=== PATIENT | female | born 1950 | race Caucasian/White ===

== ENCOUNTER → 2017-02-07 | Outpatient (CLI) | payer MEDICARE, BC ==
--- NOTE | 2017-02-07 17:42 | RADIOLOGY REPORT (SQ) ---
EXAM DESCRIPTION: U/S RETROPERITON (RENAL/AORTA) COMPLETED DATE/TIME: 02/07/2017 5:22 pm REASON FOR STUDY: CYST OF KIDNEY, ACQUIRED N28.1 CYST OF KIDNEY, ACQUIRED COMPARISON: None. TECHNIQUE: Dynamic and static grayscale images acquired of the kidneys and bladder and recorded on P ACS. Additional selected color Doppler and spectral images recorded. LIMITATIONS: None. 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 No solid or suspicious masses. No hydronephrosis. No calcifications. LEFT KIDNEY: 14.7 cm. Normal echogenicity. No solid masses. No hydronephrosis. No calcifications . Apparent 87 x 82 x 68 mm cyst arising from the lower pole. . BLADDER: No masses. OTHER FINDINGS: No other significant finding. IMPRESSION: Left renal cyst. No acute abnormality is seen. TECHNICAL DOCUMENTATION: JOB ID: [id number] [employer]- All Rights Reserved
== END ==
LOC: RAD 16:43
PROVIDERS: ATTEND Urology
DX: N28.1 Cyst of kidney, acquired (principal)
CPT/HCPCS: 76770

== ENCOUNTER 2017-06-20 07:36 | Day surgery (SDC) | payer MEDICARE, BC, OTHER ==
--- NOTE | 2017-06-15 11:20 | HISTORY AND PHYSICAL E ---
History and Physical NAME: SAADIA OLVERA : 1950 AGE: 66Y ADMITTED: 06/20/2017 ROOM: CHIEF COMPLAINT: Patient presented at this time for colon exam. She does have history of diverticulosis and rectal bleeding. Plan, colonoscopy. PAST MEDICAL HISTORY: GI bleed, irregular heartbeat, high cholesterol. PAST SURGICAL HISTORY: Knee replacement, ectopic . SOCIAL HISTORY: Does not smoke. Does not drink. MEDICATIONS: 1. Effexor. 2. Metoprolol. ALLERGIES: No known allergies. PHYSICAL EXAMINATION: GENERAL: Pleasant, alert, oriented. In no acute distress. VITAL SIGNS: Blood pressure is 140/60, pulse 60, respirations 18, temp is 98. HEAD, EYES, EARS, NOSE, THROAT: Normal. NECK: Supple. LUNGS: Clear. ABDOMEN: Soft. NEUROLOGIC: Negative. DIAGNOSTICS: Ultrasound shows a 9 cm cyst of the left kidney causing distortion of the left kidney, otherwise, normal. Patient did have colonoscopy in 2003. It shows sigmoid diverticulosis and redundant colon. Another colonoscopy in 2011 shows tiny polyp in the rectosigmoid, severe diverticulosis, no bleeding, mild external hemorrhoids. She did have sigmoid diverticulosis, descending colon diverticulosis, transverse colon normal, ascending colon occasional diverticulosis. CONCLUSION: 1. Diverticulosis. 2. Rectal bleeding. PLAN: Colonoscopy regarding diverticulosis and rectal bleeding. DICTATING PHYSICIAN: AMANDA PALMA M.D. [id number] [id number] PHY#: [id number] ID: [id number] JOB#: [id number] ACCT: [id number] cc:AMANDA PALMA M.D. >
[2017-06-20] MEDS ORDERED: LIDOCAINE 2% JELLY 30 ML TUBE ONE (07:44)
[2017-06-20] MEDS ORDERED: ONDANSETRON HCL INJ/PF 4 MG/2 ML SDV ONE (07:45)
[2017-06-20] MEDS ORDERED: NALOXONE HCL INJ/PF 0.4 MG/1 ML SDV ONE (07:45)
[2017-06-20] MEDS ORDERED: GLYCOPYRROLATE INJ 0.4 MG/2 ML VIAL ONE (07:45)
[2017-06-20] MEDS ORDERED: EPINEPHRINE INJ 1 MG/10 ML DISP.SYRIN ONE (07:46)
[2017-06-20] MEDS ORDERED: FLUMAZENIL INJ 0.5 MG/5 ML VIAL ONE (07:46)
[2017-06-20] MEDS ORDERED: GLUCAGON,HUMAN RECOMB 1 MG INJ ONE (07:46)
[2017-06-20] MEDS: MIDAZOLAM 2 MG/2 ML INJ ONE ×3 (08:23→08:40)
[2017-06-20] MEDS: FENTANYL CITRATE INJ/PF 100 MCG/2 ML AMPUL ONE ×3 (08:25→08:35)
[2017-06-20 09:46] VITALS: BP 128/71
[2017-06-20 09:57] LABS: ABSOLUTE EOSINOPHILS # (AUTO) 0.1 10^3/uL (0.0-0.6); ABSOLUTE MONOCYTES (AUTO) 0.4 10^3/uL (0.1-1.4); BASOPHILS % (AUTO) 0.5 % (0-2); HEMATOCRIT 36.6 % (36.0-47.0); HEMOGLOBIN 12.2 g/dL (12.0-15.5); LYMPHOCYTES % (AUTO) 22.1 % (13-45); MEAN CORPUSCULAR HEMOGLOBIN 28.4 pg (27.0-33.4); MEAN CORPUSCULAR HGB CONC 33.3 g/dL (32.0-36.0); MEAN CORPUSCULAR VOLUME 85 fl (80-97); MONOCYTES % (AUTO) 8.7 % (3-13); RED BLOOD COUNT 4.29 10^6/uL (3.72-5.28); RED CELL DISTRIBUTION WIDTH 13.1 % (11.5-14.0); SEGMENTED NEUTROPHILS % (AUTO) 65.7 % (42-78); WHITE BLOOD COUNT 4.6 10^3/uL (4.0-10.5)
[2017-06-20 10:11] LABS: IRON 74.2 ug/dL (37-170)
[2017-06-20 10:46] LABS: FERRITIN 85.3 ng/mL (11.1-264.0)
--- NOTE | 2017-06-20 13:48 | DISCHARGE SUMMARY E ---
Discharge Summary NAME: SAADIA OLVERA : 1950 AGE: 66Y ADMITTED: 06/20/2017 DISCHARGED: 06/20/2017 HOSPITAL COURSE: The patient is a 66-year-old female presented with blood in the stool. Underwent colonoscopy today showing external hemorrhoids and proctitis and sigmoid descending colon diverticulosis and small 2 mm transverse colon polyp removed by biopsy. A 1 mm and pinpoint tiny polyps small to biopsy. Cecum normal. DISCHARGE PLAN: Soft low residue diet 3 days. Baseline CBC. Consideration followup colonoscopy 3 years. Patient to start on high fiber diet after a few days. Awaiting biopsy results and lab studies, CBC. DICTATING PHYSICIAN: AMANDA PALMA M.D. 1211M [id number] PHY#: [id number] ID: [id number] JOB#: [id number] ACCT: [id number] cc:AMANDA PALMA M.D. >
--- NOTE | 2017-06-20 14:11 | OPERATIVE REPORT E ---
Operative Report NAME: SAADIA OLVERA : 1950 AGE: 66Y DATE OF SURGERY: 06/20/2017 ROOM: PREOPERATIVE DIAGNOSIS: Colon screening. POSTOPERATIVE DIAGNOSIS: Small 2 mm polyp mid transverse colon removed by biopsy, 1 mm mid ascending colon too small to biopsy. Sigmoid descending colon diverticulosis, moderate to severe, external hemorrhoids and mild proctitis. The bleeding most likely is coming from external hemorrhoids and mild proctitis. No evidence of malignancy with diverticulosis or not bleeding. SURGEON: AMANDA PALMA M.D. ANESTHESIA: Versed 2, fentanyl 100. TISSUE REMOVED OR ALTERED: Biopsy polyp mid transverse colon. DESCRIPTION: Rectal exam: Mild external hemorrhoids. Mild proctitis at the anal verge. There is some erythema in the anal area consistent with mild proctitis, mild external hemorrhoids. No active bleeding. No malignancy. Sigmoid diverticulosis. Moderate descending colon diverticulosis. Transverse colon 2 mm sessile polyp on a fold removed by biopsy. Ascending colon 1 mm polyp small to biopsy. Cecum normal. Scope withdrawn from cecum, ascending, transverse, descending, sigmoid all the way to the rectum. CONCLUSION: Sigmoid descending colon diverticulosis, external hemorrhoids. PLAN: Awaiting biopsy results. Consideration followup colonoscopy after 3 years. Awaiting biopsy results. Soft, low-residue diet. Hold aspirin, nonsteroidal 5 days. DICTATING PHYSICIAN: AMANDA PALMA M.D. [id number] PHY#: [id number] ID: [id number] JOB#: [id number] ACCT: [id number] cc:AMANDA PALMA M.D. >
== END 2017-06-20 10:00 | disposition home or self-care (01) ==
LOC: END 07:36
PROVIDERS: ATTEND Specialist
PROC: 0DBL8ZX Excision of Transverse Colon, Via Natural or Artificial Opening Endoscopic, Diagnostic (ICD-10-PCS; principal; 2017-06-20 08:00)
DX: D12.2 Benign neoplasm of ascending colon (principal); K62.5 Hemorrhage of anus and rectum; K64.4 Residual hemorrhoidal skin tags; K62.89 Other specified diseases of anus and rectum; K57.30 Diverticulosis of large intestine without perforation or abscess without bleeding; N28.1 Cyst of kidney, acquired; E78.00 Pure hypercholesterolemia, unspecified; Z96.659 Presence of unspecified artificial knee joint; I49.9 Cardiac arrhythmia, unspecified; Z79.899 Other long term (current) drug therapy
CPT/HCPCS: 45380; 36415; 82728; 83540; 85025; 88305 ×2; J2250; J3010; J1610; J2405; J0171; J2310; J3490

== ENCOUNTER → 2019-10-01 | Day surgery (SDC) | payer MEDICARE, BC, OTHER ==
[~2019-10-01] MED LIST: METHYLPREDNISOLONE ACETATE INJ 40 MG/1 ML ML ONE
--- NOTE | 2019-10-01 15:02 | RADIOLOGY REPORT (SQ) ---
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 FLUOROSCOPY TIME: 1.8 minutes 2 images saved to PACS. LIMITATIONS: None. PROCEDURE: SITE OF INJECTION: Bilateral subtalar joints LOCALIZING CONTRAST TYPE AND DOSE: 1 mL Omnipaque each MEDICATION TYPE AND DOSE: 40 mg Depo-Medrol/ 1 mL bupivacaine for each side. Using local anesthesia and sterile technique with fluoroscopic guidance, the needle was advanced into the joint. Iodinated contrast was injected to verify intraarticular placement. This was followed by therapeutic injection of the indicated medications. The needle was removed. There were no immediat e complications. Preprocedure pain level: 5/5 for left and right foot Postprocedure pain level: 0/5 for left and right foot IMPRESSION: THERAPEUTIC INJECTION OF THE BILATERAL SUBTALAR JOINTS ABOVE. COMMENT: Patient medication list reviewed: Yes- Quality ID# [id number]:Eligible professional attests to doc umenting in the medical record they obtained, updated, or reviewed the patient's current medications. . Quality ID 145: Final reports for procedures using fluoroscopy that document radiation exposure [place], or exposure time and number of fluorographic images (if radiation exposure indices are not avail able) TECHNICAL DOCUMENTATION: JOB ID: [id number] [employer]- All Rights Reserved Reading location - IP/workstation name: [email or web address] [id number]
--- NOTE | 2019-10-01 15:02 | RADIOLOGY REPORT (SQ) ---
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 FLUOROSCOPY TIME: 1.8 minutes 2 images saved to PACS. LIMITATIONS: None. PROCEDURE: SITE OF INJECTION: Bilateral subtalar joints LOCALIZING CONTRAST TYPE AND DOSE: 1 mL Omnipaque each MEDICATION TYPE AND DOSE: 40 mg Depo-Medrol/ 1 mL bupivacaine for each side. Using local anesthesia and sterile technique with fluoroscopic guidance, the needle was advanced into the joint. Iodinated contrast was injected to verify intraarticular placement. This was followed by therapeutic injection of the indicated medications. The needle was removed. There were no immediat e complications. Preprocedure pain level: 5/5 for left and right foot Postprocedure pain level: 0/5 for left and right foot IMPRESSION: THERAPEUTIC INJECTION OF THE BILATERAL SUBTALAR JOINTS ABOVE. COMMENT: Patient medication list reviewed: Yes- Quality ID# [id number]:Eligible professional attests to doc umenting in the medical record they obtained, updated, or reviewed the patient's current medications. . Quality ID 145: Final reports for procedures using fluoroscopy that document radiation exposure [place], or exposure time and number of fluorographic images (if radiation exposure indices are not avail able) TECHNICAL DOCUMENTATION: JOB ID: [id number] [employer]- All Rights Reserved Reading location - IP/workstation name: [email or web address] [id number]
--- NOTE | 2019-10-01 15:02 | RADIOLOGY REPORT (SQ) ---
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 FLUOROSCOPY TIME: 1.8 minutes 2 images saved to PACS. LIMITATIONS: None. PROCEDURE: SITE OF INJECTION: Bilateral subtalar joints LOCALIZING CONTRAST TYPE AND DOSE: 1 mL Omnipaque each MEDICATION TYPE AND DOSE: 40 mg Depo-Medrol/ 1 mL bupivacaine for each side. Using local anesthesia and sterile technique with fluoroscopic guidance, the needle was advanced into the joint. Iodinated contrast was injected to verify intraarticular placement. This was followed by therapeutic injection of the indicated medications. The needle was removed. There were no immediat e complications. Preprocedure pain level: 5/5 for left and right foot Postprocedure pain level: 0/5 for left and right foot IMPRESSION: THERAPEUTIC INJECTION OF THE BILATERAL SUBTALAR JOINTS ABOVE. COMMENT: Patient medication list reviewed: Yes- Quality ID# [id number]:Eligible professional attests to doc umenting in the medical record they obtained, updated, or reviewed the patient's current medications. . Quality ID 145: Final reports for procedures using fluoroscopy that document radiation exposure [place], or exposure time and number of fluorographic images (if radiation exposure indices are not avail able) TECHNICAL DOCUMENTATION: JOB ID: [id number] [employer]- All Rights Reserved Reading location - IP/workstation name: [email or web address] [id number]
--- NOTE | 2019-10-01 15:02 | RADIOLOGY REPORT (SQ) ---
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 FLUOROSCOPY TIME: 1.8 minutes 2 images saved to PACS. LIMITATIONS: None. PROCEDURE: SITE OF INJECTION: Bilateral subtalar joints LOCALIZING CONTRAST TYPE AND DOSE: 1 mL Omnipaque each MEDICATION TYPE AND DOSE: 40 mg Depo-Medrol/ 1 mL bupivacaine for each side. Using local anesthesia and sterile technique with fluoroscopic guidance, the needle was advanced into the joint. Iodinated contrast was injected to verify intraarticular placement. This was followed by therapeutic injection of the indicated medications. The needle was removed. There were no immediat e complications. Preprocedure pain level: 5/5 for left and right foot Postprocedure pain level: 0/5 for left and right foot IMPRESSION: THERAPEUTIC INJECTION OF THE BILATERAL SUBTALAR JOINTS ABOVE. COMMENT: Patient medication list reviewed: Yes- Quality ID# [id number]:Eligible professional attests to doc umenting in the medical record they obtained, updated, or reviewed the patient's current medications. . Quality ID 145: Final reports for procedures using fluoroscopy that document radiation exposure [place], or exposure time and number of fluorographic images (if radiation exposure indices are not avail able) TECHNICAL DOCUMENTATION: JOB ID: [id number] [employer]- All Rights Reserved Reading location - IP/workstation name: [email or web address] [id number]
== END ==
LOC: RAD 13:11
PROVIDERS: ATTEND Orthopaedic Surgery
DX: M19.071 Primary osteoarthritis, right ankle and foot (principal); M19.072 Primary osteoarthritis, left ankle and foot; Z79.899 Other long term (current) drug therapy; Z88.5 Allergy status to narcotic agent
CPT/HCPCS: 20605; 77002; J1030